=== PATIENT | male | born 1945 | race African-American/Black ===

== ENCOUNTER 2016-11-08 22:41 | Inpatient (IN) | payer OTHER ==
[~2016-11-08] VITALS: Ht 170.2 cm; Wt 59.3 kg
[~2016-11-08 22:41] MED LIST: ADULT LOW DOSE81 M1 PO; ALBUTEROL SULF8.5 GM IH; ALLOPURINOL100 MG PO; ALPRAZOLAM0.25 MG PO; ALTACE10 MG PO; AMLODIPINE BESY10 MG PO; AMLODIPINE BESYL5 MG PO; ASPIRIN E.C.81 M1 PO; ASPIRIN E.C.81 M2 PO; ASPIRIN325 MG PO; ATENOLOL25 M1 NG; ATORVASTATIN CA10 MG PO; AUGMENTIN500 MG PO; AUGMENTIN875 MG PO; Acyclovir PO; Aspirin E.C. PO; Bactrim,Septra DS 80 PO; CALCITRIOL0.25 MCG PO; CALCIUM 500 MG1 EACH PO; CARVEDILOL25 MG PO; CARVEDILOL6.25 MG PO; CATAPRES0.1 MG PO; CENTRUM SILV1 TABLET PO; CHANTIX1 MG PO; COLACE100 MG PO; COLCHICINE,COL0.6 MG PO; COLCHICINE0.6 MG PO; COREG25 M1 PO; COREG25 MG PO; Catapres PO; Colace PO; Colchicine,Colcrys PO; Coreg PO; DELTASONE5 MG PO; DEPAKOTE250 MG PO; DEPAKOTE500 MG PO; DILANTIN100 MG PO; DILAUDID2 MG PO; DIVALPROEX SOD500 MG PO; DRISDOL50000 UNIT PO; Diflucan PO; Dilaudid PO; DuoNeb IH; ERGOCALCIF50000 UNIT PO; FLOMAX0.4 M1 PO; FLOMAX0.4 MG PO; FOLIC ACID1 MG PO; FOLVITE1 M1 PO; Flomax PO; Folvite PO; GABAPENTIN100 MG PO; HABITROL,NICODE21 MG TD; HYDROCHLOROTHIA25 MG PO; IMDUR60 MG PO; INSPRA50 MG PO; K-Dur PO; KEPPRA1000 MG PO; KEPPRA500 MG PO; KLOR-CON M2020 MEQ PO; LABETALOL HCL100 MG PO; LACTULOSE10 GM/151 PO; LASIX40 MG PO; LEVETIRACETAM1000 MG PO; LEVETIRACETAM500 MG PO; LIBRIUM25 MG PO; LIDODERM 5% P1 PATCH TD; LITE COAT ASPI325 M1 PO; LOPRESSOR100 M1 PO; LOPRESSOR25 MG PO; Lasix PO; Levaquin PO; Lopressor PO; MAG-OXIDE400 MG PO; MAGNESIUM OXID400 MG PO; MEGACE ES625 MG/5 M PO; METOPROLOL TAR100 MG PO; MITIGARE0.6 MG PO; Mag-Ox PO; NABI650T PO; NEURONTIN100 MG PO; NEURONTIN300 MG PO; NITROSTAT0.4 MG SL; NORVASC10 MG PO; NORVASC5 MG PO; Neurontin PO; Nitrostat,NitroQuick SL; Nizoral 2% Cream TP; Norvasc PO; OMEPRAZOLE20 M2 PO; OXYCODONE HCL5 MG PO; OYSCO-500500 MG PO; Oscal 500 w/Vitamin PO; OxyCODONE; PHENYTOIN SODI200 MG PO; PLAVIX75 MG PO; PRAVACHOL40 MG PO; PRILOSEC20 MG PO; PROTONIX40 MG PO; Pravachol PO; PriLOSEC PO; Protonix PO; REGLAN5 MG PO; ROCALTROL0.25 MCG PO; Rocaltrol PO; SERTRALINE HCL25 MG PO; SODIUM BICARBO325 M1 PO; SODIUM BICARBO325 MG PO; Sodium Bicarbonate PO; THERAGRAN1 TABLET PO; THIAMINE HCL100 MG PO; THIAMINE,VITAM100 MG PO; TYLENOL REGULA325 MG PO; Theragran PO; Thiamine,Vitamin B1 PO; Tums,OsCal PO; Tylenol Regular Stre PO; Ultram PO; VIMPAT50 MG PO; VITAMIN B-1100 MG PO; VITAMIN D35000 UNIT PO; VITAMIN D5000 INTUN PO; Vancocin Oral Soluti PO; Vitamin B-12 PO; Vitamin D PO; XIFAXAN550 MG PO; Xanax PO; ZESTRIL,PRINIVI10 M1 PO; ZESTRIL,PRINIVI20 MG PO; ZONISAMIDE100 MG PO; ZYLOPRIM100 MG PO; Zofran IV; Zyloprim PO; [UNRECOGNIZED DRUG - REMARK]; oxyCODONE PO; predniSONE PO
[2016-11-08 23:27] LABS: HEMATOCRIT 45.2 % (38.0-50.0); MCH 29.4 PG (29.0-34.0); MCHC 31.6 G/DL (30.0-36.0); MEAN PLAT.VOLUME 9.9 uM^3 (9.0-12.4); PLATELET COUNT 225 K/uL (156-360); RBC DIS.WIDTH-CV 13.2 % (11.8-14.6); RBC DIS.WIDTH-SD 45.1 % (39-53); RED BLOOD COUNT 4.86 M/uL (4.00-5.50); WHITE BLOOD COUNT 9.5 K/uL (4.1-10.2)
[2016-11-08 23:48] LABS: TROP-I INTERPRETATION NEGATIVE; TROPONIN-I 0.12 ng/mL (0.0-0.30)
[2016-11-09] LABS: INTER. NORMALIZED RATIO 1.1; PROTHROMBIN TIME 10.8 (9.2-11.2)
[2016-11-09 00:38] LABS: CHLORIDE 107 mEq/L (99-109); SODIUM 143 mEq/L (136-147)
[2016-11-09 00:40] LABS: GLUCOSE 200 mg/dL (70-99)
[2016-11-09 00:42] LABS: ANION GAP 18 MEQ/L (2-14); TOTAL BILIRUBIN 0.3 mg/dL (0.0-1.0)
[2016-11-09 00:44] LABS: ALKALINE PHOSPHATASE 77 IU/L (3-129); GFR ESTIMATE (CALCULATED) 24 mL/min/
[2016-11-09 00:45] LABS: UREA NITROGEN (BUN) 28 mg/dL (9-23)
[2016-11-09 00:47] LABS: LIPASE 91 U/L (1.0-51.0)
[2016-11-09 00:48] LABS: CREATINE KINASE 130 IU/L (1-294); TOTAL CK 130 IU/L (1-294)
[2016-11-09 00:53] LABS: CK-MB 0.8 ng/mL (0.0-4.9)
[2016-11-09 01:09] LABS: ADD MIUA? YES; BILIRUBIN NEGATIVE; BLOOD SMALL; COLOR YELLOW ((YELLOW)); GLUCOSE (STRIP) NEGATIVE; KETONES NEGATIVE; LEUKOCYTES NEGATIVE; NITRITE NEGATIVE; PROTEIN (STRIP) 100; SPECIFIC GRAVITY 1.009 (1.000-1.030); UROBILINOGEN 0.2 MG/DL (0.2-1.0)
[2016-11-09 01:37] LABS: BACTERIA RARE /HPF; EPITHELIAL CELLS RARE /HPF; MUCUS TRACE /LPF; RED BLOOD CELLS 0-5 /HPF (0-5); UCUL ADDED? NO; WHITE BLOOD CELLS 0-5 /HPF (0-5)
[2016-11-09 03:41] LABS: SAMPLE HEMOLYSIS CHECK 0; SAMPLE ICTERIC CHECK 0; SAMPLE LIPEMIA CHECK 0
[2016-11-09 05:26] LABS: MAGNESIUM 1.6 mg/dl (1.3-2.7)
[2016-11-09 06:23] LABS: POINT-OF-CARE METER ID UU13113747
[2016-11-09] MEDS ORDERED: NABI650T PO (11:24)
[2016-11-09 11:30] VITALS: BP 132/77
[2016-11-09 12:38] LABS: POINT-OF-CARE METER ID UU14100415
[2016-11-09 17:38] VITALS: BP 134/61
[2016-11-09 20:00] VITALS: BP 135/63
[2016-11-09 23:51] VITALS: BP 123/58
[2016-11-10 04:25] VITALS: BP 109/53
[2016-11-10 06:52] LABS: POINT-OF-CARE METER ID UU14188577
[2016-11-10 07:25] LABS: HEMATOCRIT 36.1 % (38.0-50.0); MCH 29.4 PG (29.0-34.0); MCV 94.8 FL (86-99); RBC DIS.WIDTH-CV 13.4 % (11.8-14.6); RED BLOOD COUNT 3.81 M/uL (4.00-5.50); WHITE BLOOD COUNT 9.1 K/uL (4.1-10.2)
[2016-11-10 07:34] LABS: ANION GAP 10 MEQ/L (2-14); BASOPHIL COUNT 0.1 K/uL (0-0.1); CHLORIDE 109 MEQ/L (99-109); EOSINOPHIL (%) 1.8 % (0-5); EOSINOPHIL COUNT 0.2 K/uL (0-0.3); GFR ESTIMATE (CALCULATED) 43 mL/min/; GLUCOSE 72 mg/dL (70-99); IMMATURE GRANULOCYTE (%) 0.4 % (0.0-0.7); INSTRUMENT ABS NEUTROPHIL CT 6.1 K/uL; LYMPHOCYTE COUNT 2.2 K/uL (1.0-2.8); MEAN PLAT.VOLUME 9.4 uM^3 (9.0-12.4); MONOCYTE (%) 6.8 % (3-12); MONOCYTE COUNT 0.6 K/uL (0-0.8); NEUTROPHIL (%) 66.6 % (45-76); NEUTROPHIL COUNT 6.1 K/uL (1.8-6.4); PLAT.SUFFICIENCY DECREASED; POTASSIUM 4.1 MEQ/L (3.7-5.4); SAMPLE HEMOLYSIS CHECK 0; SAMPLE ICTERIC CHECK 0; SAMPLE LIPEMIA CHECK 0; SODIUM 140 MEQ/L (136-147); UREA NITROGEN (BUN) 22 mg/dL (9-23)
[2016-11-10 07:40] LABS: PLATELET COUNT 143 K/uL (156-360)
[2016-11-10 07:50] VITALS: BP 152/70
[2016-11-10 09:23] LABS: INTACT PARATHYROID HORMONE 64 pg/mL (10-69)
[2016-11-10 10:42] VITALS: BP 150/70
[2016-11-10 12:06] LABS: POINT-OF-CARE METER ID UU14188577
[2016-11-10 16:00] VITALS: BP 176/81
[2016-11-10 17:35] LABS: POINT-OF-CARE METER ID UU14188577
[2016-11-10 19:39] VITALS: BP 152/62
[2016-11-10 22:02] LABS: POINT-OF-CARE METER ID UU14188577
[2016-11-11 00:17] VITALS: BP 139/65
[2016-11-11 02:41] LABS: UR CREATININE CONCENTRATION 140.2 MG/DL
[2016-11-11 03:06] VITALS: BP 141/87
[2016-11-11 07:05] LABS: Estimated Average Glucose 126 mg/dL (70-123)
[2016-11-11 07:09] LABS: ANION GAP 12 MEQ/L (2-14); CHLORIDE 105 MEQ/L (99-109); GFR ESTIMATE (CALCULATED) 45 mL/min/; GLUCOSE 87 mg/dL (70-99); POTASSIUM 3.8 MEQ/L (3.7-5.4); SAMPLE HEMOLYSIS CHECK 0; SAMPLE ICTERIC CHECK 0; SAMPLE LIPEMIA CHECK 0; SODIUM 140 MEQ/L (136-147); UREA NITROGEN (BUN) 20 mg/dL (9-23)
[2016-11-11 16:06] VITALS: BP 189/93
[2016-11-11 19:52] VITALS: BP 188/92
[2016-11-12] VITALS (8 sets, daily range): BP systolic 150–193; BP diastolic 77–95
[2016-11-12 06:10] LABS: POINT-OF-CARE METER ID UU14188577
[2016-11-12 07:07] LABS: ANION GAP 15 MEQ/L (2-14); CHLORIDE 98 MEQ/L (99-109); POTASSIUM 3.7 MEQ/L (3.7-5.4); SAMPLE HEMOLYSIS CHECK 0; SAMPLE ICTERIC CHECK 0; SAMPLE LIPEMIA CHECK 0; SODIUM 138 MEQ/L (136-147)
[2016-11-12 07:12] LABS: ALKALINE PHOSPHATASE 57 IU/L (3-129); ANION GAP 16 MEQ/L (2-14); CHLORIDE 98 MEQ/L (99-109); GFR ESTIMATE (CALCULATED) > 59 mL/min/; GLUCOSE 80 mg/dL (70-99); GLUCOSE 81 mg/dL (70-99); POTASSIUM 3.7 MEQ/L (3.7-5.4); SAMPLE HEMOLYSIS CHECK 0; SAMPLE ICTERIC CHECK 0; SAMPLE LIPEMIA CHECK 0; SODIUM 139 MEQ/L (136-147); TOTAL BILIRUBIN 0.5 MG/DL (0.0-1.0); UREA NITROGEN (BUN) 16 mg/dL (9-23)
[2016-11-12 07:14] LABS: EOSINOPHIL COUNT 0.1 K/uL (0-0.3); HEMATOCRIT 41.6 % (38.0-50.0); IMMATURE GRANULOCYTE (%) 0.3 % (0.0-0.7); INSTRUMENT ABS NEUTROPHIL CT 4.9 K/uL; LYMPHOCYTE COUNT 1.2 K/uL (1.0-2.8); MCH 28.9 PG (29.0-34.0); MCHC 31.7 G/DL (30.0-36.0); MCV 91.2 FL (86-99); MEAN PLAT.VOLUME 9.6 uM^3 (9.0-12.4); MONOCYTE (%) 9.6 % (3-12); MONOCYTE COUNT 0.7 K/uL (0-0.8); NEUTROPHIL (%) 70.6 % (45-76); NEUTROPHIL COUNT 4.9 K/uL (1.8-6.4); PLATELET COUNT 176 K/uL (156-360); RBC DIS.WIDTH-CV 13.2 % (11.8-14.6); RBC DIS.WIDTH-SD 44.3 % (39-53); RED BLOOD COUNT 4.56 M/uL (4.00-5.50)
[2016-11-12 14:11] LABS: TROP-I INTERPRETATION NEGATIVE; TROPONIN-I 0.04 ng/mL (0.0-0.30)
[2016-11-12 17:59] LABS: TROP-I INTERPRETATION NEGATIVE; TROPONIN-I 0.03 ng/mL (0.0-0.30)
[2016-11-12 18:40] LABS: POINT-OF-CARE METER ID UU14188577
[2016-11-13] VITALS (7 sets, daily range): BP systolic 124–155; BP diastolic 65–79
[2016-11-13 00:46] LABS: POINT-OF-CARE METER ID UU14188577
[2016-11-13 01:48] LABS: TROP-I INTERPRETATION NEGATIVE; TROPONIN-I 0.02 ng/mL (0.0-0.30)
[2016-11-13 07:03] LABS: EOSINOPHIL (%) 4.7 % (0-5); EOSINOPHIL COUNT 0.2 K/uL (0-0.3); HEMATOCRIT 40.1 % (38.0-50.0); IMMATURE GRANULOCYTE (%) 0.2 % (0.0-0.7); INSTRUMENT ABS NEUTROPHIL CT 1.9 K/uL; LYMPHOCYTE COUNT 1.6 K/uL (1.0-2.8); MCH 29.7 PG (29.0-34.0); MCHC 32.4 G/DL (30.0-36.0); MCV 91.6 FL (86-99); MEAN PLAT.VOLUME 10.6 uM^3 (9.0-12.4); MONOCYTE (%) 11.5 % (3-12); MONOCYTE COUNT 0.5 K/uL (0-0.8); NEUTROPHIL (%) 44.7 % (45-76); NEUTROPHIL COUNT 1.9 K/uL (1.8-6.4); PLATELET COUNT 158 K/uL (156-360); RBC DIS.WIDTH-CV 13.4 % (11.8-14.6); RBC DIS.WIDTH-SD 45.5 % (39-53); RED BLOOD COUNT 4.38 M/uL (4.00-5.50); WHITE BLOOD COUNT 4.3 K/uL (4.1-10.2)
[2016-11-13 07:34] LABS: ALKALINE PHOSPHATASE 53 IU/L (3-129); ANION GAP 12 MEQ/L (2-14); CHLORIDE 97 MEQ/L (99-109); GFR ESTIMATE (CALCULATED) > 59 mL/min/; GLUCOSE 84 mg/dL (70-99); SAMPLE HEMOLYSIS CHECK 2; SAMPLE ICTERIC CHECK 0; SAMPLE LIPEMIA CHECK 0; SODIUM 138 MEQ/L (136-147); TOTAL BILIRUBIN 0.5 MG/DL (0.0-1.0); UREA NITROGEN (BUN) 22 mg/dL (9-23)
[2016-11-13 07:39] LABS: POTASSIUM ND MEQ/L (3.7-5.4)
[2016-11-13 09:17] LABS: POTASSIUM 4.1 MEQ/L (3.7-5.4)
[2016-11-13 11:20] LABS: POINT-OF-CARE METER ID UU14188577
[2016-11-14] VITALS (7 sets, daily range): BP systolic 90–146; BP diastolic 55–77
[2016-11-14 00:19] LABS: POINT-OF-CARE METER ID UU14188577
[2016-11-14 12:16] LABS: POINT-OF-CARE METER ID UU14188577
[2016-11-14 17:07] LABS: POINT-OF-CARE METER ID UU14149397
[2016-11-15 03:38] VITALS: BP 111/61
[2016-11-15 06:07] LABS: POINT-OF-CARE METER ID UU14149397
[2016-11-15 06:16] LABS: EOSINOPHIL (%) 0.9 % (0-5); EOSINOPHIL COUNT 0.1 K/uL (0-0.3); HEMATOCRIT 39.1 % (38.0-50.0); IMMATURE GRANULOCYTE (%) 0.3 % (0.0-0.7); INSTRUMENT ABS NEUTROPHIL CT 4.3 K/uL; LYMPHOCYTE COUNT 1.8 K/uL (1.0-2.8); MCH 30.3 PG (29.0-34.0); MCHC 32.7 G/DL (30.0-36.0); MCV 92.7 FL (86-99); MEAN PLAT.VOLUME 9.8 uM^3 (9.0-12.4); MONOCYTE (%) 8.9 % (3-12); MONOCYTE COUNT 0.6 K/uL (0-0.8); NEUTROPHIL (%) 62.9 % (45-76); NEUTROPHIL COUNT 4.3 K/uL (1.8-6.4); PLATELET COUNT 212 K/uL (156-360); RBC DIS.WIDTH-CV 13.5 % (11.8-14.6); RBC DIS.WIDTH-SD 45.8 % (39-53); RED BLOOD COUNT 4.22 M/uL (4.00-5.50); WHITE BLOOD COUNT 6.9 K/uL (4.1-10.2)
[2016-11-15 06:43] LABS: ALKALINE PHOSPHATASE 53 IU/L (3-129); ANION GAP 14 MEQ/L (2-14); CHLORIDE 100 MEQ/L (99-109); GLUCOSE 96 mg/dL (70-99); SAMPLE HEMOLYSIS CHECK 0; SAMPLE ICTERIC CHECK 0; SAMPLE LIPEMIA CHECK 0; SODIUM 144 MEQ/L (136-147); UREA NITROGEN (BUN) 22 mg/dL (9-23)
[2016-11-15 06:51] LABS: GFR ESTIMATE (CALCULATED) 38 mL/min/; POTASSIUM 3.1 MEQ/L (3.7-5.4); TOTAL BILIRUBIN 0.3 MG/DL (0.0-1.0)
[2016-11-15 08:00] VITALS: BP 97/54
[2016-11-15 11:23] VITALS: BP 122/61
[2016-11-15 11:32] LABS: POINT-OF-CARE METER ID UU14149397
[2016-11-15 16:31] VITALS: BP 101/55
[2016-11-16 00:15] VITALS: BP 137/71
[2016-11-16 00:28] LABS: POINT-OF-CARE METER ID UU14188577
[2016-11-16 06:15] LABS: POINT-OF-CARE METER ID UU14188577
[2016-11-16 06:44] LABS: EOSINOPHIL (%) 1.4 % (0-5); EOSINOPHIL COUNT 0.1 K/uL (0-0.3); IMMATURE GRANULOCYTE (%) 0.4 % (0.0-0.7); INSTRUMENT ABS NEUTROPHIL CT 4.4 K/uL; LYMPHOCYTE COUNT 2.5 K/uL (1.0-2.8); MCHC 31.5 G/DL (30.0-36.0); MCV 95.1 FL (86-99); MEAN PLAT.VOLUME 9.6 uM^3 (9.0-12.4); MONOCYTE (%) 11.4 % (3-12); MONOCYTE COUNT 0.9 K/uL (0-0.8); NEUTROPHIL (%) 55.3 % (45-76); NEUTROPHIL COUNT 4.4 K/uL (1.8-6.4); PLATELET COUNT 189 K/uL (156-360); RBC DIS.WIDTH-CV 13.7 % (11.8-14.6); RBC DIS.WIDTH-SD 48.2 % (39-53); WHITE BLOOD COUNT 7.9 K/uL (4.1-10.2)
[2016-11-16 07:22] VITALS: BP 142/68
[2016-11-16 07:32] LABS: ALKALINE PHOSPHATASE 44 IU/L (3-129); ANION GAP 11 MEQ/L (2-14); CHLORIDE 108 MEQ/L (99-109); GFR ESTIMATE (CALCULATED) 48 mL/min/; GLUCOSE 82 mg/dL (70-99); SAMPLE HEMOLYSIS CHECK 0; SAMPLE ICTERIC CHECK 0; SAMPLE LIPEMIA CHECK 0; SODIUM 144 MEQ/L (136-147); UREA NITROGEN (BUN) 20 mg/dL (9-23)
[2016-11-16 07:33] LABS: TOTAL BILIRUBIN 0.2 MG/DL (0.0-1.0)
[2016-11-16] MEDS ORDERED: ALPRAZOLAM0.25 M2 PO (11:39)
[2016-11-16] MEDS ORDERED: AMLODIPINE BESYL5 MG PO (11:39)
[2016-11-16] MEDS ORDERED: PRAVASTATIN SOD40 MG PO (11:39)
[2016-11-16] MEDS ORDERED: ASPIR 8181 M1 PO (11:39)
[2016-11-16] MEDS ORDERED: VITAMIN D31000 UNI2 PO (11:39)
[2016-11-16] MEDS ORDERED: ZONISAMIDE100 MG PO (11:39)
== END 2016-11-16 14:23 | disposition home health service (06) | DRG 682 ==
LOC: EME → EDBD 22:41 → EDOF 11-09 04:05 → 3EAST 11-09 04:05
PROVIDERS: Emergency Medicine; Hospitalist; Internal Medicine; Physician Assistant Medical
DX: N17.9 Acute kidney failure, unspecified (principal); J96.01 Acute respiratory failure with hypoxia; E87.2 Acidosis; E46 Unspecified protein-calorie malnutrition; R64 Cachexia; Z68.1 Body mass index [BMI] 19.9 or less, adult; I13.0 Hypertensive heart and chronic kidney disease with heart failure and stage 1 through stage 4 chronic kidney disease, or unspecified chronic kidney disease; G40.909 Epilepsy, unspecified, not intractable, without status epilepticus; R47.01 Aphasia; I25.10 Atherosclerotic heart disease of native coronary artery without angina pectoris; E55.9 Vitamin D deficiency, unspecified; F03.90 Unspecified dementia, unspecified severity, without behavioral disturbance, psychotic disturbance, mood disturbance, and anxiety; I50.9 Heart failure, unspecified; Z96.642 Presence of left artificial hip joint; E86.0 Dehydration; F17.210 Nicotine dependence, cigarettes, uncomplicated; N18.3 Chronic kidney disease, stage 3 (moderate); I16.0 Hypertensive urgency; J44.9 Chronic obstructive pulmonary disease, unspecified; K21.9 Gastro-esophageal reflux disease without esophagitis; N25.81 Secondary hyperparathyroidism of renal origin; N28.1 Cyst of kidney, acquired; N40.0 Benign prostatic hyperplasia without lower urinary tract symptoms; M10.9 Gout, unspecified; K59.00 Constipation, unspecified; K70.30 Alcoholic cirrhosis of liver without ascites; G93.89 Other specified disorders of brain; F10.97 Alcohol use, unspecified with alcohol-induced persisting dementia; Z91.14 Patient's other noncompliance with medication regimen; Z87.11 Personal history of peptic ulcer disease; Z91.19 Patient's noncompliance with other medical treatment and regimen; Z88.6 Allergy status to analgesic agent; Z79.82 Long term (current) use of aspirin; Z86.73 Personal history of transient ischemic attack (TIA), and cerebral infarction without residual deficits; Z95.1 Presence of aortocoronary bypass graft; Z95.5 Presence of coronary angioplasty implant and graft; Z83.3 Family history of diabetes mellitus; Z82.49 Family history of ischemic heart disease and other diseases of the circulatory system
CPT/HCPCS: 70450; 71010; 76770; 80053; 80069; 80164; 81003; 82140; 82306; 82436; 82550; 82553; 82570; 82575; 82948; 83036; 83605; 83690; 83735; 83935; 83970; 84133; 84300; 84484; 84999; 85025; 85027; 85379; 85610; 85730; 87040; 92610 GN; 93005; 95819; 99281; 99285; J0360; J0696; J1644; J1815; J2270; J3480; J7050; J7120; S0030

== ENCOUNTER 2017-01-03 22:55 | Inpatient (IN) | payer OTHER ==
[~2017-01-03] VITALS: Ht 162.6 cm; Wt 52.6 kg
[~2017-01-03 22:55] MED LIST changes: +ALPRAZOLAM0.25 M2 PO; +ASPIR 8181 M1 PO; +PRAVASTATIN SOD40 MG PO; +VITAMIN D31000 UNI2 PO
[2017-01-03 23:08] LABS: CREATININE 2.3 mg/dL (0.6-1.3); POTASSIUM 5.3 mEq/L (3.7-5.4)
[2017-01-03 23:15] LABS: EOSINOPHIL (%) 3.1 % (0-5); EOSINOPHIL COUNT 0.1 K/uL (0-0.3); IMMATURE GRANULOCYTE (%) 0.2 % (0.0-0.7); INSTRUMENT ABS NEUTROPHIL CT 2.1 K/uL; LYMPHOCYTE COUNT 1.7 K/uL (1.0-2.8); MCH 29.3 PG (29.0-34.0); MCHC 31.9 G/DL (30.0-36.0); MCV 91.9 FL (86-99); MEAN PLAT.VOLUME 10.4 uM^3 (9.0-12.4); MONOCYTE (%) 10.9 % (3-12); MONOCYTE COUNT 0.5 K/uL (0-0.8); NEUTROPHIL (%) 47.8 % (45-76); NEUTROPHIL COUNT 2.1 K/uL (1.8-6.4); PLATELET COUNT 195 K/uL (156-360); RBC DIS.WIDTH-CV 13.6 % (11.8-14.6); RED BLOOD COUNT 4.57 M/uL (4.00-5.50); WHITE BLOOD COUNT 4.5 K/uL (4.1-10.2)
[2017-01-03 23:20] LABS: INTER. NORMALIZED RATIO 1.1; PROTHROMBIN TIME 11.6 SEC (10.2-12.9)
[2017-01-03 23:23] LABS: PTT 22.1 SEC (25-37)
[2017-01-03 23:27] LABS: AMYLASE 239 IU/L (1-118); CHLORIDE 108 mEq/L (99-109); POTASSIUM 5.4 mEq/L (3.7-5.4); SODIUM 141 mEq/L (136-147)
[2017-01-03 23:29] LABS: GLUCOSE 65 mg/dL (70-99)
[2017-01-03 23:30] LABS: ANION GAP 11 MEQ/L (2-14)
[2017-01-03 23:32] LABS: GFR ESTIMATE (CALCULATED) 32 mL/min/; SERUM ETHYL ALCOHOL < 10 mg/dL
[2017-01-03 23:33] LABS: UREA NITROGEN (BUN) 36 mg/dL (9-23)
[2017-01-03 23:35] LABS: LIPASE 105 U/L (1.0-51.0)
[2017-01-03 23:36] LABS: CREATINE KINASE 150 IU/L (1-294)
[2017-01-03 23:53] LABS: TROP-I INTERPRETATION NEGATIVE; TROPONIN-I < 0.01 ng/mL (0.0-0.30)
[2017-01-04 02:13] LABS: SAMPLE HEMOLYSIS CHECK 0; SAMPLE ICTERIC CHECK 0; SAMPLE LIPEMIA CHECK 0
[2017-01-04 03:17] LABS: HDL CHOLESTEROL 69 MG/DL (Desirable>=40); LDL CHOLESTEROL 129 mg/dL (Desirable<100); NON-HDL CHOLESTEROL 167 mg/dL (Desirable<160); TOTAL CHOLESTEROL 236 mg/dL (Desirable<200); TRIGLYCERIDES 190 MG/DL (Normal: <150)
[2017-01-04 05:19] VITALS: BP 210/98
[2017-01-04 07:31] LABS: ADD MEDTOX COMMENT Y; AMPHETAMINE NEGATIVE (500 ng/mL); BARBITURATES NEGATIVE (200 ng/mL); BENZODIAZEPINES NEGATIVE (150 ng/mL); COCAINE PRESUMPTIVE POSITIVE (150 ng/mL); INTERNAL CONTROLS VALID? YES; METHADONE NEGATIVE (200 ng/mL); METHAMPHETAMINE NEGATIVE (500 ng/mL); OPIATES (MORPHINE) NEGATIVE (100 ng/mL); OXYCODONE NEGATIVE (100 ng/mL); PHENCYCLIDINE NEGATIVE (25 ng/mL); PROPOXYPHENE NEGATIVE (300 ng/mL); THC CANNABINOIDS NEGATIVE (50 ng/mL); TRICYCLIC ANTIDEPRESSANTS NEGATIVE (300 ng/mL)
[2017-01-04 07:47] VITALS: BP 112/69
[2017-01-04 07:47] LABS: ADD MIUA? NO; BILIRUBIN NEGATIVE; BLOOD NEGATIVE; COLOR STRAW ((YELLOW)); GLUCOSE (STRIP) NEGATIVE; KETONES NEGATIVE; LEUKOCYTES NEGATIVE; NITRITE NEGATIVE; PROTEIN (STRIP) NEGATIVE; UCUL ADDED? NO; UROBILINOGEN 0.2 MG/DL (0.2-1.0)
[2017-01-04 08:25] LABS: Estimated Average Glucose 117 mg/dL (70-123); HEMOGLOBIN A1c (GLYCOHEMOGLOB) 5.7 % HGB (Below 5.7)
[2017-01-04 11:13] VITALS: BP 134/76
[2017-01-04 16:02] VITALS: BP 129/65
[2017-01-04 20:10] VITALS: BP 186/95
[2017-01-04 23:55] VITALS: BP 176/94
[2017-01-05 03:41] VITALS: BP 130/73
[2017-01-05 06:47] LABS: HEMATOCRIT 38.1 % (38.0-50.0); MCH 30.1 PG (29.0-34.0); MCHC 32.8 G/DL (30.0-36.0); MCV 91.8 FL (86-99); MEAN PLAT.VOLUME 9.7 uM^3 (9.0-12.4); PLATELET COUNT 191 K/uL (156-360); RBC DIS.WIDTH-CV 13.7 % (11.8-14.6); RBC DIS.WIDTH-SD 46.8 % (39-53); RED BLOOD COUNT 4.15 M/uL (4.00-5.50); WHITE BLOOD COUNT 4.5 K/uL (4.1-10.2)
[2017-01-05 07:12] LABS: ANION GAP 8 MEQ/L (2-14); CHLORIDE 112 MEQ/L (99-109); GFR ESTIMATE (CALCULATED) 43 mL/min/; POTASSIUM 4.5 MEQ/L (3.7-5.4); SAMPLE HEMOLYSIS CHECK 0; SAMPLE ICTERIC CHECK 0; SAMPLE LIPEMIA CHECK 0; SODIUM 141 MEQ/L (136-147); UREA NITROGEN (BUN) 29 mg/dL (9-23)
[2017-01-05 07:23] LABS: GLUCOSE 94 mg/dL (70-99)
[2017-01-05 07:25] VITALS: BP 159/74
[2017-01-05] MEDS ORDERED: ASPIR-TRIN325 M1 PO (09:45)
[2017-01-05] MEDS ORDERED: LIPITOR40 MG PO (10:06)
[2017-01-05] MEDS ORDERED: LIPITOR10 MG PO (10:07)
[2017-01-05 11:34] VITALS: BP 176/81
[2017-01-05 15:06] VITALS: BP 184/76
[2017-01-05 20:00] VITALS: BP 163/88
[2017-01-05 23:40] VITALS: BP 205/84
[2017-01-06 03:47] VITALS: BP 118/57
[2017-01-06 05:58] LABS: ANION GAP 10 MEQ/L (2-14); CHLORIDE 110 MEQ/L (99-109); GFR ESTIMATE (CALCULATED) 38 mL/min/; GLUCOSE 136 mg/dL (70-99); POTASSIUM 3.9 MEQ/L (3.7-5.4); SAMPLE HEMOLYSIS CHECK 0; SAMPLE ICTERIC CHECK 0; SAMPLE LIPEMIA CHECK 0; SODIUM 140 MEQ/L (136-147); UREA NITROGEN (BUN) 33 mg/dL (9-23)
[2017-01-06 07:55] VITALS: BP 157/76
[2017-01-06 11:07] VITALS: BP 155/72
[2017-01-06] MEDS ORDERED: ATORVASTATIN CA40 MG PO (12:13)
== END 2017-01-06 15:30 | disposition home or self-care (01) | DRG 65 ==
LOC: EME → EDBD 22:55 → EME 22:55 → 5SOUTH 01-04 03:55 → EDOF 01-04 03:55 → ENRESERV 01-04 03:56 → CANRESERV 01-04 03:56 → ENRESERV 01-04 04:24 → 5SOUTH 01-04 05:04 → ENPENDDIS 01-06 → 5SOUTH 01-06 15:30
PROVIDERS: Emergency Medicine; Hospitalist; Physician Assistant Medical
DX: I63.9 Cerebral infarction, unspecified (principal); F01.51 Vascular dementia, unspecified severity, with behavioral disturbance; I13.0 Hypertensive heart and chronic kidney disease with heart failure and stage 1 through stage 4 chronic kidney disease, or unspecified chronic kidney disease; E87.2 Acidosis; N17.9 Acute kidney failure, unspecified; Z68.1 Body mass index [BMI] 19.9 or less, adult; G40.801 Other epilepsy, not intractable, with status epilepticus; I50.9 Heart failure, unspecified; F10.97 Alcohol use, unspecified with alcohol-induced persisting dementia; E86.0 Dehydration; N18.3 Chronic kidney disease, stage 3 (moderate); I27.2 Other secondary pulmonary hypertension; R47.01 Aphasia; R29.810 Facial weakness; E78.5 Hyperlipidemia, unspecified; F17.200 Nicotine dependence, unspecified, uncomplicated; F10.20 Alcohol dependence, uncomplicated; F32.9 Major depressive disorder, single episode, unspecified; E21.3 Hyperparathyroidism, unspecified; D64.9 Anemia, unspecified; J44.9 Chronic obstructive pulmonary disease, unspecified; F41.9 Anxiety disorder, unspecified; K21.9 Gastro-esophageal reflux disease without esophagitis; Z95.2 Presence of prosthetic heart valve; Z95.5 Presence of coronary angioplasty implant and graft; Z95.1 Presence of aortocoronary bypass graft; Z74.01 Bed confinement status; Z87.11 Personal history of peptic ulcer disease; Z96.642 Presence of left artificial hip joint; Z86.73 Personal history of transient ischemic attack (TIA), and cerebral infarction without residual deficits; N18.2 Chronic kidney disease, stage 2 (mild)
CPT/HCPCS: 70450; 76770; 80047; 80048; 80061; 81003; 82140; 82150; 82550; 83036; 83690; 84484; 84999; 85025; 85027; 85610; 85730; 86900; 86901; 92610 GN; 93005; 93306; 95819; 97530 GO; 99281; 99285; G0480; J0360; J1644; J1953; J2060; J7042; J7050

== ENCOUNTER 2017-08-11 04:05 | Inpatient (IN) | payer OTHER ==
[2017-08-11] VITALS (26 sets, daily range): BP systolic 86–188; BP diastolic 58–101
[~2017-08-11] VITALS: Ht 175.3 cm; Wt 49.9 kg
[~2017-08-11 04:05] MED LIST changes: +ASPIR-TRIN325 M1 PO; +ATORVASTATIN CA40 MG PO; +LIPITOR10 MG PO; +LIPITOR40 MG PO
[2017-08-11 04:51] LABS: APPEARANCE CLEAR ((CLEAR)); BILIRUBIN NEGATIVE; BLOOD MODERATE; COLOR STRAW ((YELLOW)); GLUCOSE (STRIP) NEGATIVE; KETONES NEGATIVE; LEUKOCYTES NEGATIVE; NITRITE NEGATIVE; PROTEIN (STRIP) 100; UROBILINOGEN 0.2 MG/DL (0.2-1.0)
[2017-08-11 05:24] LABS: BACTERIA NONE SEEN /HPF; EPITHELIAL CELLS NONE SEEN /HPF; HYALINE CASTS 0-5 /LPF; MUCUS NONE SEEN /LPF; RED BLOOD CELLS 0-5 /HPF (0-5); UCUL ADDED? NO; WHITE BLOOD CELLS 0-5 /HPF (0-5)
[2017-08-11 05:28] LABS: BASE EXCESS -9.9 mEq/L (-3 to +3); BICARBONATE 15.1 mEq/L (22-26); CARBOXY HGB 1.6 % (0-5); COMMENTS - BLOOD GASES C+A+; METHEMOGLOBIN 1.1 % (0-1.5); PCO2 30 mm Hg (35-45); PO2 369 mm Hg (80-100); SITE LR; pH 7.31 (7.35-7.45)
[2017-08-11 05:29] LABS: DEVICE VENT; FI02 100 %; MECHANICAL RATE 18 resp/min; MODE AC; PEEP 5 CM/H20; TIDAL VOLUME 500 ML; TOTAL RESP RATE 18 resp/min
[2017-08-11 05:37] LABS: CARBON DIOXIDE (BICARBONATE) 15.4 MEQ/L (20-31)
[2017-08-11 05:47] LABS: CHLORIDE 114 mEq/L (99-109); POTASSIUM 3.6 mEq/L (3.7-5.4); SODIUM 141 mEq/L (136-147)
[2017-08-11 05:49] LABS: GLUCOSE 135 mg/dL (70-99); TOTAL PROTEIN 6.6 g/dL (6.4-8.3)
[2017-08-11 05:51] LABS: TOTAL BILIRUBIN 0.5 mg/dL (0.0-1.0)
[2017-08-11 05:53] LABS: ALKALINE PHOSPHATASE 74 IU/L (3-129); CREATININE 2.2 mg/dL (0.6-1.3); GFR ESTIMATE (CALCULATED) 38 mL/min/ (58.99-99999)
[2017-08-11 05:54] LABS: HEMATOCRIT 37.1 % (38.0-50.0); HEMOGLOBIN 12.3 G/DL (12.5-16.6); MCH 30.4 PG (29.0-34.0); MCHC 33.2 G/DL (30.0-36.0); MCV 91.8 FL (86-99); PLATELET COUNT 220 K/uL (156-360); RBC DIS.WIDTH-CV 13.1 % (11.8-14.6); RBC DIS.WIDTH-SD 43.9 % (39-53); RED BLOOD COUNT 4.04 M/uL (4.00-5.50); UREA NITROGEN (BUN) 41 mg/dL (9-23); WHITE BLOOD COUNT 16.1 K/uL (4.1-10.2)
[2017-08-11 05:55] LABS: AST (GOT) 13 IU/L (2-34)
[2017-08-11 05:56] LABS: ALT (GPT) 7 IU/L (3-49); CREATINE KINASE 171 IU/L (1-294); LIPASE 118 U/L (1.0-51.0); TOTAL CK 171 IU/L (1-294)
[2017-08-11 05:59] LABS: TROP-I INTERPRETATION NEGATIVE; TROPONIN-I 0.02 ng/mL (0.0-0.30)
[2017-08-11 06:02] LABS: CK-MB 1.7 ng/mL (0.0-4.9)
[2017-08-11 06:59] LABS: SERUM ETHYL ALCOHOL < 10 mg/dL
[2017-08-11 07:02] LABS: ACETAMINOPHEN (TYLENOL) < 10 mcg/mL (10-30); SALICYLATE < 5.0 MG/DL (15-30)
[2017-08-11 09:10] LABS: CHLORIDE 118 MEQ/L (99-109); GLUCOSE 123 mg/dL (70-99); MAGNESIUM 1.5 mg/dl (1.3-2.7); PHOSPHORUS 2.2 mg/dL (2.5-4.9); POTASSIUM 3.4 MEQ/L (3.7-5.4); SODIUM 145 MEQ/L (136-147); UREA NITROGEN (BUN) 32 mg/dL (9-23)
[2017-08-11 09:11] LABS: CREATININE 1.7 MG/DL (0.6-1.3)
[2017-08-11 09:12] LABS: GFR ESTIMATE (CALCULATED) 51 mL/min/ (58.99-99999)
[2017-08-11 09:27] LABS: PTT 22.6 SEC (25-37)
[2017-08-11] MEDS ORDERED: FOLIC ACID1 MG PO (18:13)
[2017-08-11] MEDS ORDERED: ATORVASTATIN CA10 MG PO (18:17)
[2017-08-11] MEDS ORDERED: TAMSULOSIN HCL0.4 MG PO (18:17)
[2017-08-11] MEDS ORDERED: ZONISAMIDE100 MG PO (18:18)
[2017-08-12] VITALS (27 sets, daily range): BP systolic 90–217; BP diastolic 60–139
[2017-08-12 08:34] LABS: HEMATOCRIT 41.5 % (38.0-50.0); HEMOGLOBIN 12.8 G/DL (12.5-16.6); MCH 29.9 PG (29.0-34.0); MCHC 30.8 G/DL (30.0-36.0); PLATELET COUNT 169 K/uL (156-360); RBC DIS.WIDTH-CV 14.1 % (11.8-14.6); RBC DIS.WIDTH-SD 50.4 % (39-53); RED BLOOD COUNT 4.28 M/uL (4.00-5.50); WHITE BLOOD COUNT 20.3 K/uL (4.1-10.2)
[2017-08-12 09:00] LABS: ALBUMIN 3.3 G/DL (3.2-4.8); ALKALINE PHOSPHATASE 64 IU/L (3-129); ALT (GPT) 8 IU/L (3-49); AST (GOT) 13 IU/L (2-34); CHLORIDE 112 MEQ/L (99-109); CREATININE 1.7 MG/DL (0.6-1.3); GFR ESTIMATE (CALCULATED) 51 mL/min/ (58.99-99999); MAGNESIUM 1.4 mg/dl (1.3-2.7); SODIUM 141 MEQ/L (136-147); TOTAL BILIRUBIN 0.4 MG/DL (0.0-1.0); TOTAL PROTEIN 5.7 G/DL (6.4-8.3); UREA NITROGEN (BUN) 28 mg/dL (9-23)
[2017-08-12 09:03] LABS: GLUCOSE 82 mg/dL (70-99); PHOSPHORUS 4.1 mg/dL (2.5-4.9)
[2017-08-13] VITALS (29 sets, daily range): BP systolic 98–194; BP diastolic 61–130
[2017-08-13 05:03] LABS: BASOPHIL (%) 0.1 % (0-1); EOSINOPHIL (%) 0.5 % (0-5); EOSINOPHIL COUNT 0.1 K/uL (0-0.3); HEMATOCRIT 36.9 % (38.0-50.0); HEMOGLOBIN 11.6 G/DL (12.5-16.6); IMMATURE GRANULOCYTE (%) 0.6 % (0.0-0.7); LYMPHOCYTE (%) 8.1 % (15-42); LYMPHOCYTE COUNT 1.1 K/uL (1.0-2.8); MCH 29.5 PG (29.0-34.0); MCHC 31.4 G/DL (30.0-36.0); MCV 93.9 FL (86-99); MONOCYTE (%) 8.4 % (3-12); MONOCYTE COUNT 1.1 K/uL (0-0.8); NEUTROPHIL (%) 82.3 % (45-76); PLATELET COUNT 168 K/uL (156-360); RBC DIS.WIDTH-CV 13.8 % (11.8-14.6); RBC DIS.WIDTH-SD 47.7 % (39-53); RED BLOOD COUNT 3.93 M/uL (4.00-5.50); WHITE BLOOD COUNT 13.4 K/uL (4.1-10.2)
[2017-08-13 05:23] LABS: CHLORIDE 111 MEQ/L (99-109); CREATININE 1.5 MG/DL (0.6-1.3); GFR ESTIMATE (CALCULATED) > 59 mL/min/ (58.99-99999); GLUCOSE 82 mg/dL (70-99); SODIUM 141 MEQ/L (136-147); UREA NITROGEN (BUN) 18 mg/dL (9-23)
[2017-08-13 09:29] LABS: HSV-1 IgG Antibody 34.6 Index (<0.90); HSV-2 IgG Antibody 2.23 Index (<0.90)
[2017-08-14] VITALS (25 sets, daily range): BP systolic 105–193; BP diastolic 56–115
[2017-08-14 05:52] LABS: BASOPHIL (%) 0.3 % (0-1); EOSINOPHIL (%) 0.9 % (0-5); EOSINOPHIL COUNT 0.1 K/uL (0-0.3); HEMATOCRIT 34.8 % (38.0-50.0); HEMOGLOBIN 11.2 G/DL (12.5-16.6); IMMATURE GRANULOCYTE (%) 0.3 % (0.0-0.7); LYMPHOCYTE COUNT 0.9 K/uL (1.0-2.8); MCHC 32.2 G/DL (30.0-36.0); MCV 93.3 FL (86-99); MONOCYTE (%) 8.7 % (3-12); MONOCYTE COUNT 0.9 K/uL (0-0.8); NEUTROPHIL (%) 80.8 % (45-76); NEUTROPHIL COUNT 8.3 K/uL (1.8-6.4); PLATELET COUNT 153 K/uL (156-360); RBC DIS.WIDTH-CV 13.9 % (11.8-14.6); RBC DIS.WIDTH-SD 47.5 % (39-53); RED BLOOD COUNT 3.73 M/uL (4.00-5.50); WHITE BLOOD COUNT 10.3 K/uL (4.1-10.2)
[2017-08-14 06:19] LABS: CHLORIDE 108 MEQ/L (99-109); CREATININE 1.6 MG/DL (0.6-1.3); GFR ESTIMATE (CALCULATED) 55 mL/min/ (58.99-99999); MAGNESIUM 1.4 mg/dl (1.3-2.7); PHOSPHORUS 3.2 mg/dL (2.5-4.9); POTASSIUM 4.3 MEQ/L (3.7-5.4); SODIUM 141 MEQ/L (136-147); UREA NITROGEN (BUN) 20 mg/dL (9-23)
[2017-08-14 06:20] LABS: GLUCOSE 118 mg/dL (70-99)
[2017-08-15] VITALS (14 sets, daily range): BP systolic 115–192; BP diastolic 55–96
[2017-08-16] VITALS (7 sets, daily range): BP systolic 128–153; BP diastolic 60–68
[2017-08-16 08:33] LABS: HEMATOCRIT 31.7 % (38.0-50.0); HEMOGLOBIN 10.1 G/DL (12.5-16.6); MCH 30.4 PG (29.0-34.0); MCHC 31.9 G/DL (30.0-36.0); MCV 95.5 FL (86-99); PLATELET COUNT 181 K/uL (156-360); RBC DIS.WIDTH-CV 13.9 % (11.8-14.6); RBC DIS.WIDTH-SD 48.8 % (39-53); RED BLOOD COUNT 3.32 M/uL (4.00-5.50); WHITE BLOOD COUNT 10.9 K/uL (4.1-10.2)
[2017-08-16 09:07] LABS: ALBUMIN 2.8 G/DL (3.2-4.8); ALKALINE PHOSPHATASE 56 IU/L (3-129); ALT (GPT) 7 IU/L (3-49); AST (GOT) 10 IU/L (2-34); CHLORIDE 110 MEQ/L (99-109); CREATININE 1.4 MG/DL (0.6-1.3); GFR ESTIMATE (CALCULATED) > 59 mL/min/ (58.99-99999); GLUCOSE 134 mg/dL (70-99); POTASSIUM 4.1 MEQ/L (3.7-5.4); SODIUM 142 MEQ/L (136-147); TOTAL PROTEIN 5.1 G/DL (6.4-8.3); UREA NITROGEN (BUN) 23 mg/dL (9-23)
[2017-08-16 09:12] LABS: TOTAL BILIRUBIN 0.3 MG/DL (0.0-1.0)
[2017-08-17 03:13] VITALS: BP 116/58
[2017-08-17 06:26] LABS: HEMATOCRIT 30.6 % (38.0-50.0); HEMOGLOBIN 9.6 G/DL (12.5-16.6); MCH 30.2 PG (29.0-34.0); MCHC 31.4 G/DL (30.0-36.0); MCV 96.2 FL (86-99); PLATELET COUNT 199 K/uL (156-360); RBC DIS.WIDTH-CV 13.8 % (11.8-14.6); RBC DIS.WIDTH-SD 49.3 % (39-53); RED BLOOD COUNT 3.18 M/uL (4.00-5.50); WHITE BLOOD COUNT 9.1 K/uL (4.1-10.2)
[2017-08-17 06:42] LABS: CHLORIDE 107 MEQ/L (99-109); CREATININE 1.4 MG/DL (0.6-1.3); GFR ESTIMATE (CALCULATED) > 59 mL/min/ (58.99-99999); GLUCOSE 130 mg/dL (70-99); POTASSIUM 3.9 MEQ/L (3.7-5.4); SODIUM 141 MEQ/L (136-147); UREA NITROGEN (BUN) 28 mg/dL (9-23)
[2017-08-17 07:52] VITALS: BP 138/74
[2017-08-17 11:48] VITALS: BP 142/78
[2017-08-17 16:16] VITALS: BP 132/70
[2017-08-17 19:39] VITALS: BP 121/60
[2017-08-17 23:08] VITALS: BP 124/63
[2017-08-18 03:29] VITALS: BP 156/74
[2017-08-18 07:27] LABS: HEMATOCRIT 29.5 % (38.0-50.0); HEMOGLOBIN 9.2 G/DL (12.5-16.6); MCH 30.3 PG (29.0-34.0); MCHC 31.2 G/DL (30.0-36.0); PLATELET COUNT 238 K/uL (156-360); RBC DIS.WIDTH-CV 13.9 % (11.8-14.6); RBC DIS.WIDTH-SD 49.8 % (39-53); RED BLOOD COUNT 3.04 M/uL (4.00-5.50); WHITE BLOOD COUNT 9.7 K/uL (4.1-10.2)
[2017-08-18 07:51] VITALS: BP 151/70
[2017-08-18 15:15] VITALS: BP 168/81
[2017-08-18 21:55] VITALS: BP 182/86
[2017-08-19 00:22] VITALS: BP 163/88
[2017-08-19 01:29] VITALS: BP 163/88
[2017-08-19 02:50] LABS: C DIFF TOXIN NEGATIVE (NEGATIVE)
[2017-08-19 03:34] VITALS: BP 158/74
[2017-08-19 06:35] VITALS: BP 165/75
[2017-08-19 15:27] VITALS: BP 176/82
[2017-08-19 21:36] VITALS: BP 175/80
[2017-08-20 00:10] VITALS: BP 158/83
[2017-08-20 06:29] LABS: HEMATOCRIT 31.8 % (38.0-50.0); HEMOGLOBIN 9.7 G/DL (12.5-16.6); MCH 29.6 PG (29.0-34.0); MCHC 30.5 G/DL (30.0-36.0); RBC DIS.WIDTH-CV 13.5 % (11.8-14.6); RBC DIS.WIDTH-SD 48.3 % (39-53); RED BLOOD COUNT 3.28 M/uL (4.00-5.50); WHITE BLOOD COUNT 7.1 K/uL (4.1-10.2)
[2017-08-20 06:30] LABS: PLATELET COUNT 331 K/uL (156-360)
[2017-08-20 07:13] VITALS: BP 152/68
[2017-08-20 08:58] VITALS: BP 151/73
[2017-08-20 11:12] VITALS: BP 152/68
[2017-08-20] MEDS ORDERED: LABETALOL HCL200 MG PO (13:06)
[2017-08-20] MEDS ORDERED: DEPAKENE250 MG PO (13:07)
[2017-08-20] MEDS ORDERED: LEVETIRACETAM500 MG PO (13:07)
[2017-08-20] MEDS ORDERED: PREDNISONE20 MG PO (13:07)
[2017-08-20] MEDS ORDERED: AMLODIPINE BESYL5 MG PO (13:09)
== END 2017-08-20 17:58 | disposition home health service (06) | DRG 100 ==
LOC: EME → EDBD 04:05 → EME 04:05 → 4WEST 06:10 → EDOF 06:10 → ENRESERV 06:11 → 4WEST 07:38 → ENRESERV 08-15 15:35 → 4WEST 08-15 16:51 → ENRESERV 08-15 16:58 → 5SOUTH 08-15 19:19 → ENPENDDIS 08-20 13:14 → 5SOUTH 08-20 17:58
PROVIDERS: Emergency Medicine; Hospitalist; Internal Medicine; Internal Medicine Critical Care Medicine; Physician Assistant Medical; Specialist
PROC: 5A1945Z Respiratory Ventilation, 24-96 Consecutive Hours (ICD-10-PCS; principal; 2017-08-11)
PROC: 02HV33Z Insertion of Infusion Device into Superior Vena Cava, Percutaneous Approach (ICD-10-PCS; principal; 2017-08-11)
PROC: B544ZZA Ultrasonography of Left Jugular Veins, Guidance (ICD-10-PCS; principal; 2017-08-11)
PROC: 0BH17EZ Insertion of Endotracheal Airway into Trachea, Via Natural or Artificial Opening (ICD-10-PCS; principal; 2017-08-11)
DX: G40.901 Epilepsy, unspecified, not intractable, with status epilepticus (principal); J96.00 Acute respiratory failure, unspecified whether with hypoxia or hypercapnia; N17.9 Acute kidney failure, unspecified; E87.2 Acidosis; G93.40 Encephalopathy, unspecified; E41 Nutritional marasmus; I13.0 Hypertensive heart and chronic kidney disease with heart failure and stage 1 through stage 4 chronic kidney disease, or unspecified chronic kidney disease; I50.9 Heart failure, unspecified; N18.9 Chronic kidney disease, unspecified; N25.81 Secondary hyperparathyroidism of renal origin; D64.9 Anemia, unspecified; E78.5 Hyperlipidemia, unspecified; E11.22 Type 2 diabetes mellitus with diabetic chronic kidney disease; F32.9 Major depressive disorder, single episode, unspecified; J44.9 Chronic obstructive pulmonary disease, unspecified; K21.9 Gastro-esophageal reflux disease without esophagitis; K70.9 Alcoholic liver disease, unspecified; M10.9 Gout, unspecified; F41.9 Anxiety disorder, unspecified; R19.7 Diarrhea, unspecified; F10.27 Alcohol dependence with alcohol-induced persisting dementia; R13.10 Dysphagia, unspecified; F17.200 Nicotine dependence, unspecified, uncomplicated; Z96.642 Presence of left artificial hip joint; I69.351 Hemiplegia and hemiparesis following cerebral infarction affecting right dominant side; Z87.11 Personal history of peptic ulcer disease; Z68.1 Body mass index [BMI] 19.9 or less, adult; Z91.19 Patient's noncompliance with other medical treatment and regimen; Z95.1 Presence of aortocoronary bypass graft; Z79.82 Long term (current) use of aspirin; Z86.19 Personal history of other infectious and parasitic diseases
CPT/HCPCS: 36600; 70450; 71045; 73110; 74230; 80048; 80048 91; 80053; 81003; 82140; 82550; 82553; 82803; 83605; 83690; 83735; 84100; 84145 90; 84484; 85025; 85027; 85610; 85730; 86141; 86695 90; 86696 90; 87040; 87070; 87205; 87449; 87493; 87641; 92526 GN; 92610 GN; 92611 GN; 93005; 94002; 94003; 94010; 94640; 94640 76; 94760; 94799; 95813; 97530 GO; 97530 GP; 99202; 99281; 99285; C1751; G0480; J0295; J0360; J1644; J1953; J1956; J2060; J2250; J2270; J2543; J2704; J3010; J7030; J7050; J7120; J7512; S0028

== ENCOUNTER 2017-10-01 14:53 | Inpatient (IN) | payer OTHER ==
[~2017-10-01] VITALS: Ht 172.7 cm; Wt 54.2 kg
[~2017-10-01 14:53] MED LIST changes: +DEPAKENE250 MG PO; +LABETALOL HCL200 MG PO; +PREDNISONE20 MG PO; +TAMSULOSIN HCL0.4 MG PO
[2017-10-01 15:08] LABS: HEMATOCRIT 41.5 % (38.0-50.0); HEMOGLOBIN 13.2 G/DL (12.5-16.6); MCH 30.9 PG (29.0-34.0); MCHC 31.8 G/DL (30.0-36.0); MCV 97.2 FL (86-99); PLATELET COUNT 201 K/uL (156-360); RBC DIS.WIDTH-CV 14.2 % (11.8-14.6); RED BLOOD COUNT 4.27 M/uL (4.00-5.50)
[2017-10-01 15:14] LABS: INTER. NORMALIZED RATIO 1.1
[2017-10-01 15:16] LABS: PTT 28.8 SEC (25-37)
[2017-10-01 15:17] LABS: AMYLASE 167 IU/L (1-118)
[2017-10-01 15:26] LABS: LIPASE 52 U/L (1.0-51.0)
[2017-10-01 15:32] LABS: TROP-I INTERPRETATION NEGATIVE; TROPONIN-I < 0.01 ng/mL (0.0-0.30)
[2017-10-01 16:12] LABS: BASOPHIL (%) 0.7 % (0-1); EOSINOPHIL (%) 1.3 % (0-5); EOSINOPHIL COUNT 0.1 K/uL (0-0.3); HEMATOCRIT 41.8 % (38.0-50.0); HEMOGLOBIN 13.1 G/DL (12.5-16.6); IMMATURE GRANULOCYTE (%) 0.3 % (0.0-0.7); LYMPHOCYTE (%) 26.2 % (15-42); LYMPHOCYTE COUNT 1.6 K/uL (1.0-2.8); MCH 30.6 PG (29.0-34.0); MCHC 31.3 G/DL (30.0-36.0); MCV 97.7 FL (86-99); MONOCYTE (%) 8.3 % (3-12); MONOCYTE COUNT 0.5 K/uL (0-0.8); NEUTROPHIL (%) 63.2 % (45-76); NEUTROPHIL COUNT 3.8 K/uL (1.8-6.4); PLATELET COUNT 220 K/uL (156-360); RBC DIS.WIDTH-CV 14.4 % (11.8-14.6); RBC DIS.WIDTH-SD 51.7 % (39-53); RED BLOOD COUNT 4.28 M/uL (4.00-5.50)
[2017-10-01 17:09] LABS: CHLORIDE 109 mEq/L (99-109); POTASSIUM 4.9 mEq/L (3.7-5.4); SODIUM 145 mEq/L (136-147)
[2017-10-01 17:11] LABS: GLUCOSE 98 mg/dL (70-99)
[2017-10-01 17:14] LABS: CREATININE 1.9 mg/dL (0.6-1.3); GFR ESTIMATE (CALCULATED) 45 mL/min/ (58.99-99999)
[2017-10-01 17:15] LABS: UREA NITROGEN (BUN) 22 mg/dL (9-23)
[2017-10-01 17:25] LABS: ALBUMIN 4.5 g/dL (3.2-4.8)
[2017-10-01 17:30] LABS: TOTAL BILIRUBIN 0.5 mg/dL (0.0-1.0)
[2017-10-01 17:31] LABS: ALKALINE PHOSPHATASE 73 IU/L (3-129)
[2017-10-01 17:33] LABS: AST (GOT) 14 IU/L (2-34)
[2017-10-01 17:34] LABS: ALT (GPT) 10 IU/L (3-49)
[2017-10-01 18:22] LABS: VALPROIC ACID (DEPAKOTE) < 10.0 MCG/ML (50-100)
[2017-10-01 21:09] LABS: HDL CHOLESTEROL 78 MG/DL (Desirable>=40); LDL CHOLESTEROL 81 mg/dL (Desirable<100); NON-HDL CHOLESTEROL 105 mg/dL (Desirable<160); SERUM ETHYL ALCOHOL < 10 mg/dL; TOTAL CHOLESTEROL 183 mg/dL (Desirable<200); TRIGLYCERIDES 122 MG/DL (Normal: <150)
[2017-10-01 21:37] VITALS: BP 192/82
[2017-10-02] VITALS (7 sets, daily range): BP systolic 116–188; BP diastolic 66–86
[2017-10-02 06:04] LABS: HEMATOCRIT 39.8 % (38.0-50.0); HEMOGLOBIN 12.1 G/DL (12.5-16.6); MCH 29.7 PG (29.0-34.0); MCHC 30.4 G/DL (30.0-36.0); MCV 97.8 FL (86-99); PLATELET COUNT 172 K/uL (156-360); RBC DIS.WIDTH-CV 14.1 % (11.8-14.6); RBC DIS.WIDTH-SD 50.9 % (39-53); RED BLOOD COUNT 4.07 M/uL (4.00-5.50); WHITE BLOOD COUNT 6.3 K/uL (4.1-10.2)
[2017-10-02 06:09] LABS: ALBUMIN 3.9 G/DL (3.2-4.8); ALKALINE PHOSPHATASE 62 IU/L (3-129); ALT (GPT) 8 IU/L (3-49); AST (GOT) 13 IU/L (2-34); CHLORIDE 109 MEQ/L (99-109); CREATININE 1.5 MG/DL (0.6-1.3); GFR ESTIMATE (CALCULATED) > 59 mL/min/ (58.99-99999); GLUCOSE 81 mg/dL (70-99); POTASSIUM 5.1 MEQ/L (3.7-5.4); SODIUM 140 MEQ/L (136-147); TOTAL BILIRUBIN 0.5 MG/DL (0.0-1.0); TOTAL PROTEIN 6.6 G/DL (6.4-8.3); UREA NITROGEN (BUN) 19 mg/dL (9-23)
[2017-10-02 08:19] LABS: APPEARANCE CLEAR ((CLEAR)); BILIRUBIN NEGATIVE; BLOOD NEGATIVE; COLOR STRAW ((YELLOW)); GLUCOSE (STRIP) NEGATIVE; KETONES NEGATIVE; LEUKOCYTES NEGATIVE; NITRITE NEGATIVE; PROTEIN (STRIP) NEGATIVE; SPECIFIC GRAVITY 1.019 (1.000-1.030); UROBILINOGEN 0.2 MG/DL (0.2-1.0)
[2017-10-02 08:41] LABS: BENZODIAZEPINES, URINE SCREEN Negative (200 ng/mL)
[2017-10-02] MEDS ORDERED: SERTRALINE HCL25 MG PO (10:01)
[2017-10-02 10:54] LABS: HEMOGLOBIN A1c (GLYCOHEMOGLOB) 5.5 % (Below 5.7)
[2017-10-03] VITALS (7 sets, daily range): BP systolic 117–157; BP diastolic 60–77
[2017-10-03 05:30] LABS: HEMATOCRIT 35.6 % (38.0-50.0); HEMOGLOBIN 11.2 G/DL (12.5-16.6); MCH 30.7 PG (29.0-34.0); MCHC 31.5 G/DL (30.0-36.0); MCV 97.5 FL (86-99); PLATELET COUNT 168 K/uL (156-360); RBC DIS.WIDTH-CV 14.1 % (11.8-14.6); RBC DIS.WIDTH-SD 50.7 % (39-53); RED BLOOD COUNT 3.65 M/uL (4.00-5.50); WHITE BLOOD COUNT 4.9 K/uL (4.1-10.2)
[2017-10-03 06:03] LABS: CHLORIDE 112 MEQ/L (99-109); CREATININE 1.6 MG/DL (0.6-1.3); GFR ESTIMATE (CALCULATED) 55 mL/min/ (58.99-99999); GLUCOSE 87 mg/dL (70-99); POTASSIUM 4.6 MEQ/L (3.7-5.4); SODIUM 142 MEQ/L (136-147); UREA NITROGEN (BUN) 23 mg/dL (9-23)
[2017-10-03] MEDS ORDERED: NABI650T PO (11:21)
[2017-10-03] MEDS ORDERED: FOLIC ACID1 MG PO (11:22)
[2017-10-03] MEDS ORDERED: VITAMIN B1 100 MG (11:22)
[2017-10-03] MEDS ORDERED: ATORVASTATIN CA10 MG PO (11:23)
[2017-10-03] MEDS ORDERED: SERTRALINE HCL25 MG PO (11:24)
[2017-10-03] MEDS ORDERED: TAMSULOSIN HCL0.4 MG PO (11:24)
[2017-10-03] MEDS ORDERED: LEVETIRACETAM500 MG PO (11:25)
[2017-10-03] MEDS ORDERED: PREDNISONE20 MG PO (11:25)
[2017-10-03] MEDS ORDERED: AMLODIPINE BESYL5 MG PO (11:25)
[2017-10-03] MEDS ORDERED: LABETALOL HCL200 MG PO (11:25)
[2017-10-03] MEDS ORDERED: VALPROIC ACID250 MG PO (11:25)
[2017-10-03] MEDS ORDERED: B-1100 MG PO (11:25)
[2017-10-03] MEDS ORDERED: ZONISAMIDE100 MG PO (11:25)
[2017-10-03] MEDS ORDERED: CLONIDINE HCL0.1 MG PO (11:26)
[2017-10-03] MEDS ORDERED: COLCHICINE0.6 M1 PO (11:26)
[2017-10-03] MEDS ORDERED: ERGOCALCIF50000 UNIT PO (11:26)
[2017-10-04 03:42] VITALS: BP 137/66
[2017-10-04 06:33] LABS: HEMATOCRIT 34.6 % (38.0-50.0); HEMOGLOBIN 10.7 G/DL (12.5-16.6); MCH 29.7 PG (29.0-34.0); MCHC 30.9 G/DL (30.0-36.0); MCV 96.1 FL (86-99); PLATELET COUNT 174 K/uL (156-360); RBC DIS.WIDTH-CV 14.2 % (11.8-14.6); RBC DIS.WIDTH-SD 50.4 % (39-53); WHITE BLOOD COUNT 4.3 K/uL (4.1-10.2)
[2017-10-04 07:19] VITALS: BP 164/78
[2017-10-04] MEDS ORDERED: CLONIDINE HCL0.1 MG PO (11:47)
[2017-10-04] MEDS ORDERED: LABETALOL HCL200 MG PO (11:47)
[2017-10-04] MEDS ORDERED: ERGOCALCIF50000 UNIT PO (11:47)
[2017-10-04] MEDS ORDERED: LEVETIRACETAM500 MG PO (11:47)
[2017-10-04] MEDS ORDERED: FOLIC ACID1 MG PO (11:47)
[2017-10-04] MEDS ORDERED: ATORVASTATIN CA10 MG PO (11:47)
[2017-10-04] MEDS ORDERED: AMLODIPINE BESYL5 MG PO (11:47)
[2017-10-04] MEDS ORDERED: COLCHICINE0.6 M1 PO (11:47)
[2017-10-04] MEDS ORDERED: B-1100 MG PO (11:47)
[2017-10-04] MEDS ORDERED: SERTRALINE HCL25 MG PO (11:47)
[2017-10-04] MEDS ORDERED: TAMSULOSIN HCL0.4 MG PO (11:47)
[2017-10-04] MEDS ORDERED: DIVALPROEX SOD500 MG PO (11:47)
[2017-10-04] MEDS ORDERED: ASPIR-LOW81 MG PO (11:47)
[2017-10-04] MEDS ORDERED: NABI650T PO (11:47)
== END 2017-10-04 15:06 | disposition home or self-care (01) | DRG 101 ==
LOC: EME 14:53 → EDOF 20:06 → 5SOUTH 20:06 → ENRESERV 20:08 → 5SOUTH 21:00
PROVIDERS: Emergency Medicine; Hospitalist; Physician Assistant Medical
DX: G40.901 Epilepsy, unspecified, not intractable, with status epilepticus (principal); I16.1 Hypertensive emergency; E46 Unspecified protein-calorie malnutrition; R62.7 Adult failure to thrive; Z68.1 Body mass index [BMI] 19.9 or less, adult; I12.9 Hypertensive chronic kidney disease with stage 1 through stage 4 chronic kidney disease, or unspecified chronic kidney disease; N18.3 Chronic kidney disease, stage 3 (moderate); R29.810 Facial weakness; R47.81 Slurred speech; I69.322 Dysarthria following cerebral infarction; R29.706 NIHSS score 6; F10.27 Alcohol dependence with alcohol-induced persisting dementia; D64.9 Anemia, unspecified; F10.21 Alcohol dependence, in remission; I65.02 Occlusion and stenosis of left vertebral artery; R26.81 Unsteadiness on feet; N25.81 Secondary hyperparathyroidism of renal origin; J44.9 Chronic obstructive pulmonary disease, unspecified; K70.30 Alcoholic cirrhosis of liver without ascites; I25.10 Atherosclerotic heart disease of native coronary artery without angina pectoris; E55.9 Vitamin D deficiency, unspecified; K21.9 Gastro-esophageal reflux disease without esophagitis; K44.9 Diaphragmatic hernia without obstruction or gangrene; N40.0 Benign prostatic hyperplasia without lower urinary tract symptoms; F32.9 Major depressive disorder, single episode, unspecified; F41.9 Anxiety disorder, unspecified; Z95.1 Presence of aortocoronary bypass graft; Z82.49 Family history of ischemic heart disease and other diseases of the circulatory system; Z83.3 Family history of diabetes mellitus; Z87.11 Personal history of peptic ulcer disease; Z86.19 Personal history of other infectious and parasitic diseases; Z96.649 Presence of unspecified artificial hip joint; Z87.891 Personal history of nicotine dependence
CPT/HCPCS: 70450; 70496; 70498; 71045; 80047; 80048; 80048 91; 80053; 80061; 80164; 80306 90; 81003; 82150; 83036; 83690; 84484; 85025; 85027; 85610; 85730; 93005; 99281; 99285; G0480; J1650; J1953; J2060; J7030; J7050

== ENCOUNTER 2017-11-19 13:24 | Inpatient (IN) | payer OTHER ==
[~2017-11-19] VITALS: Ht 180.3 cm; Wt 53.1 kg
[~2017-11-19 13:24] MED LIST changes: +ASPIR-LOW81 MG PO; +B-1100 MG PO; +CLONIDINE HCL0.1 MG PO; +COLCHICINE0.6 M1 PO; +VALPROIC ACID250 MG PO; +VITAMIN B1 100 MG
[2017-11-19 13:50] LABS: BASOPHIL (%) 0.9 % (0-1); BASOPHIL COUNT 0.1 K/uL (0-0.1); EOSINOPHIL (%) 3.1 % (0-5); EOSINOPHIL COUNT 0.2 K/uL (0-0.3); HEMOGLOBIN 14.4 G/DL (12.5-16.6); IMMATURE GRANULOCYTE (%) 0.4 % (0.0-0.7); LYMPHOCYTE (%) 46.2 % (15-42); LYMPHOCYTE COUNT 3.5 K/uL (1.0-2.8); MCH 31.9 PG (29.0-34.0); MCHC 31.3 G/DL (30.0-36.0); MONOCYTE (%) 11.7 % (3-12); MONOCYTE COUNT 0.9 K/uL (0-0.8); NEUTROPHIL (%) 37.7 % (45-76); NEUTROPHIL COUNT 2.8 K/uL (1.8-6.4); PLATELET COUNT 192 K/uL (156-360); RED BLOOD COUNT 4.51 M/uL (4.00-5.50); WHITE BLOOD COUNT 7.5 K/uL (4.1-10.2)
[2017-11-19 14:01] LABS: ALBUMIN 4.8 g/dL (3.2-4.8); CHLORIDE 105 mEq/L (99-109); POTASSIUM 4.3 mEq/L (3.7-5.4); SODIUM 142 mEq/L (136-147)
[2017-11-19 14:03] LABS: GLUCOSE 117 mg/dL (70-99); TOTAL PROTEIN 8.7 g/dL (6.4-8.3)
[2017-11-19 14:05] LABS: TOTAL BILIRUBIN 0.5 mg/dL (0.0-1.0)
[2017-11-19 14:07] LABS: ALKALINE PHOSPHATASE 67 IU/L (3-129); CREATININE 2.2 mg/dL (0.6-1.3); GFR ESTIMATE (CALCULATED) 38 mL/min/ (58.99-99999)
[2017-11-19 14:08] LABS: UREA NITROGEN (BUN) 28 mg/dL (9-23)
[2017-11-19 14:09] LABS: AST (GOT) 18 IU/L (2-34)
[2017-11-19 14:10] LABS: TROP-I INTERPRETATION NEGATIVE; TROPONIN-I 0.01 ng/mL (0.0-0.30)
[2017-11-19 14:10] LABS: ALT (GPT) 14 IU/L (3-49)
[2017-11-19 14:32] LABS: CREATINE KINASE 139 IU/L (1-294)
[2017-11-19 14:37] LABS: HDL CHOLESTEROL 72 MG/DL (Desirable>=40); LDL CHOLESTEROL 84 mg/dL (Desirable<100); NON-HDL CHOLESTEROL 110 mg/dL (Desirable<160); TOTAL CHOLESTEROL 182 mg/dL (Desirable<200); TRIGLYCERIDES 128 MG/DL (Normal: <150)
[2017-11-19 15:28] LABS: HEMOGLOBIN A1c (GLYCOHEMOGLOB) 5.6 % (Below 5.7)
[2017-11-19 15:30] LABS: VALPROIC ACID (DEPAKOTE) < 10.0 MCG/ML (50-100)
[2017-11-19 15:41] LABS: APPEARANCE CLEAR ((CLEAR)); BILIRUBIN NEGATIVE; BLOOD NEGATIVE; COLOR YELLOW ((YELLOW)); GLUCOSE (STRIP) NEGATIVE; KETONES NEGATIVE; LEUKOCYTES NEGATIVE; NITRITE NEGATIVE; PROTEIN (STRIP) 30; SPECIFIC GRAVITY 1.013 (1.000-1.030); UCUL ADDED? NO; UROBILINOGEN 0.2 MG/DL (0.2-1.0)
[2017-11-19 16:03] LABS: CHLORIDE 111 mEq/L (99-109); POTASSIUM 5.1 mEq/L (3.7-5.4); SODIUM 145 mEq/L (136-147)
[2017-11-19 16:04] LABS: GLUCOSE 99 mg/dL (70-99)
[2017-11-19 16:08] LABS: GFR ESTIMATE (CALCULATED) 43 mL/min/ (58.99-99999)
[2017-11-19 16:09] LABS: UREA NITROGEN (BUN) 28 mg/dL (9-23)
[2017-11-19 17:40] VITALS: BP 228/110
[2017-11-19 18:13] VITALS: BP 156/91
[2017-11-19 19:15] VITALS: BP 109/55
[2017-11-19 21:01] VITALS: BP 140/66
[2017-11-19 23:57] VITALS: BP 140/76
[2017-11-20 03:55] VITALS: BP 128/58
[2017-11-20 07:46] VITALS: BP 123/56
[2017-11-20 16:35] VITALS: BP 131/60
[2017-11-20 19:31] VITALS: BP 148/68
[2017-11-20 23:30] VITALS: BP 138/69
[2017-11-21 07:29] VITALS: BP 130/62
[2017-11-21 11:28] VITALS: BP 147/69
[2017-11-21 16:16] VITALS: BP 146/70
[2017-11-21 21:44] VITALS: BP 138/67
[2017-11-22 00:49] VITALS: BP 135/62
[2017-11-22 07:02] VITALS: BP 126/68
[2017-11-22 07:19] LABS: CHLORIDE 106 MEQ/L (99-109); CREATININE 2.2 MG/DL (0.6-1.3); GFR ESTIMATE (CALCULATED) 38 mL/min/ (58.99-99999); GLUCOSE 91 mg/dL (70-99); MAGNESIUM 1.8 mg/dl (1.3-2.7); SODIUM 142 MEQ/L (136-147)
[2017-11-22 07:44] LABS: UREA NITROGEN (BUN) 50 mg/dL (9-23); VALPROIC ACID (DEPAKOTE) 65.7 MCG/ML (50-100)
[2017-11-22 11:15] VITALS: BP 165/67
[2017-11-22] MEDS ORDERED: CLOPIDOGREL75 MG PO (12:49)
[2017-11-22] MEDS ORDERED: ATORVASTATIN CA40 MG PO (12:49)
[2017-11-22] MEDS ORDERED: ASPIR-LOW81 MG PO (12:50)
[2017-11-22] MEDS ORDERED: LEVETIRACETAM500 MG PO (12:50)
[2017-11-22] MEDS ORDERED: DEPAKENE250 MG PO (12:50)
[2017-11-22] MEDS ORDERED: NORVASC5 MG PO (12:58)
== END 2017-11-22 15:24 | disposition home health service (06) | DRG 101 ==
LOC: EME 13:24 → EDOF 15:18 → 5EAST 15:18 → ENRESERV 15:24 → 5EAST 17:10
PROVIDERS: Emergency Medicine; Family Medicine; Physician Assistant
DX: G40.909 Epilepsy, unspecified, not intractable, without status epilepticus (principal); E87.2 Acidosis; I12.9 Hypertensive chronic kidney disease with stage 1 through stage 4 chronic kidney disease, or unspecified chronic kidney disease; N18.3 Chronic kidney disease, stage 3 (moderate); N25.81 Secondary hyperparathyroidism of renal origin; F10.27 Alcohol dependence with alcohol-induced persisting dementia; I25.10 Atherosclerotic heart disease of native coronary artery without angina pectoris; J44.9 Chronic obstructive pulmonary disease, unspecified; F17.200 Nicotine dependence, unspecified, uncomplicated; Z96.649 Presence of unspecified artificial hip joint; Z79.82 Long term (current) use of aspirin; Z86.73 Personal history of transient ischemic attack (TIA), and cerebral infarction without residual deficits; Z87.11 Personal history of peptic ulcer disease; Z91.14 Patient's other noncompliance with medication regimen; Z95.1 Presence of aortocoronary bypass graft
CPT/HCPCS: 70450; 80048; 80048 91; 80053; 80061; 80164; 81003; 82550; 83036; 83735; 84484; 85025; 92523 GN; 92610 GN; 93005; 93880; 99281; 99285; J0360; J1644; J1953; J2060; J7030; J7050